=== PATIENT | female | born 1995 | race Caucasian/White ===

== ENCOUNTER 2023-01-23 20:55 | Outpatient (REF) | payer BC, SELFPAY | END 2023-01-23 20:56 | disposition home or self-care (01) | LOC: LAB 20:55 | PROVIDERS: Visit Provider Obstetrics & Gynecology | DX: Z34.93 Encounter for supervision of normal pregnancy, unspecified, third trimester (principal) | CPT/HCPCS: 87081 ==

== ENCOUNTER 2023-02-22 14:52 | Outpatient (OUT) | payer BC, SELFPAY ==
[2023-02-22 14:56] VITALS: BP 110/72; PULSE 70
[2023-02-22 14:57] VITALS: TEMP 36.2
--- NOTE | 2023-02-22 15:14 | US_ITS ---
[address] [address] Patient Name: YASSINE BRANDT MRN: [id number] date: 1995 Sex: F Assigned Patient Location: [facility] Current Patient Location: [facility] Accession/Order Number: [id number] Exam Date: 02/22/2023 15:15 Report Date: 02/22/2023 15:43 At the request of: SADI FUNK Procedure: US OB BPP w non-stress EXAMINATION: US OB BPP w non-stress HISTORY: O48.0 POST DELIVERY DATES COMPARISON: Ultrasound placenta 11/01/2022 TECHNIQUE: Ultrasound biophysical profile was performed in the radiology department. BREATHING MOVEMENTS: 2.0 GROSS BODY MOVEMENTS: 2.0 TONE: 2.0 QUALITATIVE AMNIOTIC FLUID VOLUME: 2.0 PRESENTATION: CEPHALIC HEART RATE: 138.5 bpm bpm. AMNIOTIC FLUID VOLUME: 13.6 cm GESTATIONAL AGE: 40 weeks 1 days CONCLUSION: Total biophysical profile score 8.0. Electronically authenticated by: HECTOR RUSSELL Date: 02/22/2023 15:43
== END 2023-02-22 15:35 | disposition home or self-care (01) ==
LOC: US 14:52 → FBC 14:53
PROVIDERS: Visit Provider Obstetrics & Gynecology
DX: O48.0 Post-term pregnancy (principal); Z3A.40 40 weeks gestation of pregnancy
CPT/HCPCS: 76818

== ENCOUNTER 2023-02-26 06:56 | Inpatient (IN) | payer BC, SELFPAY ==
[2023-02-26] VITALS (33 sets, daily range): BP systolic 99–141; BP diastolic 56–82; PULSE 58–89; RESP 16–18; TEMP 36.2–37
[2023-02-26] MEDS: 0.9 % SODIUM CHLORIDE 1,000 ML 125 ML IV ×2 (07:58→15:20)
[2023-02-26] MEDS: OXYTOCIN/0.9 % SODIUM CHLORIDE 10 UNITS/500 ML PLAST..BAG 6 UNIT IV (08:05)
[2023-02-26 08:12] LABS: Hematocrit 34.5 % (36.0-48.0); Hemoglobin 12.1 g/dL (12.0-16.0); Mean Corpuscular HGB Conc 35.1 g/dL (29.9-35.2); Mean Corpuscular Hemoglobin 30.8 pg (26.7-34.0); Mean Corpuscular Volume 87.8 fL (81.0-99.0); Platelet Count 185 10^3/uL (150-450); Red Blood Count 3.93 10^6/uL (4.20-5.40); Red Cell Distribution Width 13.3 % (11.0-15.0); White Blood Count 7.5 10^3/uL (4.0-11.0)
[2023-02-26 08:50] LABS: Amphetamine Screen Urine NEGATIVE (NEGATIVE); Barbiturates Screen Urine NEGATIVE (NEGATIVE); Benzodiazepines Screen Urine NEGATIVE (NEGATIVE); Buprenorphine Screen Urine NEGATIVE (NEGATIVE); Cannabinoid Screen Urine NEGATIVE (NEGATIVE); Cocaine Screen Urine NEGATIVE (NEGATIVE); Methadone Screen Urine NEGATIVE (NEGATIVE); Methamphetamines Screen Urine NEGATIVE (NEGATIVE); Opiate Screen Urine NEGATIVE (NEGATIVE); Oxycodone Screen Urine NEGATIVE (NEGATIVE); Phencyclidine Screen Urine NEGATIVE (NEGATIVE); Tricyclic Antidepressant Urine NEGATIVE (NEGATIVE)
--- NOTE | 2023-02-26 18:42 | PM.OBPRCVD ---
Procedure Intrapartal events: None Induction method: per pitocin protocol Delivery augmentation: rupture of membranes and pitocin Delivery monitor: external FHT and external uterine Route of delivery: Episiotomy Description: right mediolateral Laceration description: perineal - 2nd degree Delivery repair: Vicryl Estimated blood loss (mL): 275 Anesthesia type: nitrous Disposition: floor Delivery date: 02/26/23 Gender: female presentation: vertex Placental delivery description: Spontaneous cord description: 3 Vessels and Nuchal Cord
[2023-02-27] VITALS (9 sets, daily range): BP systolic 94–139; BP diastolic 52–84; PULSE 65–76; RESP 14–16; TEMP 36.7–36.9
[2023-02-27 05:48] LABS: Basophils Percent Auto 0.2 % (0.2-2.0); Eosinophils Percent Auto 0.1 % (0.9-7.0); Hematocrit 30.5 % (36.0-48.0); Hemoglobin 10.4 g/dL (12.0-16.0); Immature Granulocytes Abs Auto 0.18 10^3/uL (0.00-0.03); Immature Granulocytes Pct Auto 1.1 % (0.0-0.5); Lymphocytes Absolute Auto 1.5 10^3/uL (1.2-3.8); Mean Corpuscular HGB Conc 34.1 g/dL (29.9-35.2); Mean Corpuscular Hemoglobin 30.6 pg (26.7-34.0); Mean Corpuscular Volume 89.7 fL (81.0-99.0); Mean Platelet Volume 11.1 fL (9.5-13.5); Monocytes Absolute Auto 1.1 10^3/uL (0.3-0.8); Monocytes Percent Auto 6.9 % (1.7-12.0); Neutrophils Absolute Auto 13.5 10^3/uL (1.4-6.5); Neutrophils Percent Auto 82.7 % (43.0-75.0); Platelet Count 184 10^3/uL (150-450); Red Cell Distribution Width 13.4 % (11.0-15.0); White Blood Count 16.4 10^3/uL (4.0-11.0)
--- NOTE | 2023-02-27 07:37 | PM.OBPN ---
OB - PN: Subj Subjective Patient comments: no complaints [place] status: doing well Exam Constitutional Vital Signs, click to edit/add: Last Vital Signs Temp 98.4 F 02/27/23 03:47 Pulse 65 02/27/23 03:47 Resp 16 02/27/23 03:47 BP 94/52 02/27/23 03:47 O2 Del Method Room Air 02/27/23 03:47 Documenting provider has reviewed patient's vital signs: yes Common normals: no apparent distress Respiratory Common normals: clear to auscultation bilaterally Cardio Common normals: regular rate and regular rhythm GI Common normals: Normal to inspection, nondistended, normoactive bowel sounds present Extremity Common normals: no clubbing, cyanosis or edema and no calf tenderness Results Labs Labs: Short CBC 02/26/23 02/27/23 Range/Units 07:50 05:34 WBC 7.5 16.4 H (4.0-11.0) 10^3/uL Hgb 12.1 10.4 L (12.0-16.0) g/dL Hct 34.5 L 30.5 L (36.0-48.0) % Plt Count 185 184 (150-450) 10^3/uL OB - PN: A/P Plan - Vaginal Delivery day: 1 Plan: routine care Time Spent with Patient Time: Total time spent is greater than 50% in coordination of care (as documented) at patient's floor/unit and/or counseling patient: Total time spent with greater than 50% in coordination of care (as documented) at patient's floor/unit and/or counseling patient: less than 15 minutes
[2023-02-27] MEDS: DOCUSATE SODIUM 100 MG CAPSULE PO ×2 (09:00→22:38)
--- NOTE | 2023-02-27 19:11 | W.PC.ACHO ---
Registration Status: ADM IN Primary Language: Senegalese Preferred Language: Senegalese Active Medications Generic Name Dose Route Start Last Admin Trade Name Freq PRN Reason Stop Dose Admin Acetaminophen 650 mg 02/26/23 19:00 Acetaminophen 325 Mg Tablet PO Q6H PRN Mild Pain Al Hydroxide/Mg Hydroxide 2,400 mg 02/26/23 18:44 Magnesium Hydroxide 2,400 Mg/10 Ml Oral.Susp PO Q6H PRN Dyspepsia Docusate Sodium 100 mg 02/27/23 09:00 02/27/23 09:00 Docusate Sodium 100 Mg Capsule PO 100 mg BID RYDER Administration Sodium Chloride 1,000 mls @ 125 mls/hr 02/26/23 07:00 02/26/23 15:20 Sodium Chloride 0.9% 1,000 Ml IV 125 mls/hr .Q8H RYDER Administration Ibuprofen 600 mg 02/26/23 18:44 Ibuprofen 600 Mg Tablet PO Q6H PRN Moderate Pain Ondansetron HCl 4 mg 02/26/23 06:59 Ondansetron Pf 4 Mg/2 Ml Vial IV Q6H PRN Nausea And Vomiting Ondansetron HCl 4 mg 02/26/23 06:59 Ondansetron 4 Mg Rapdis Tablet SL Q6H PRN Nausea And Vomiting Senna 17.2 mg 02/26/23 20:00 Sennosides 8.6 Mg Tablet PO QHS PRN Constipation Simethicone 80 mg 02/26/23 18:44 Simethicone 80 Mg Tab.Chew PO QID PRN Abdominal Distention Temazepam 15 mg 02/26/23 22:00 Temazepam 15 Mg Capsule PO QHS PRN Sleep Witch Cristin/Glycerin 1 each 02/26/23 18:44 Glycerin/Witch Cristin 1 Each Jar TOPICAL ONCE PRN Pain IV Insertion/Site Date of IV Line Insertion [20g 02/26/23 right Forearm] IV Insertion Time [20g right 18:40 Forearm] Respiratory Oxygen Delivery Method Room Air Oxygen Delivery Method Room Air Oxygen Delivery Method Room Air Oxygen Delivery Method Room Air Oxygen Delivery Method Room Air Oxygen Delivery Method Room Air Oxygen Delivery Method Room Air Oxygen Delivery Method Room Air Oxygen Delivery Method Room Air Oxygen Delivery Method Room Air Oxygen Delivery Method Room Air Oxygen Delivery Method Room Air Oxygen Delivery Method Room Air Oxygen Delivery Method Room Air Oxygen Delivery Method Room Air Bowels Bowel Pattern No Bowel Movement Bowel Pattern No Bowel Movement Bowel Pattern No Bowel Movement Bowel Pattern No Bowel Movement Bowel Pattern No Bowel Movement Bowel Pattern No Bowel Movement Bowel Pattern No Bowel Movement Bowel Pattern No Bowel Movement Bowel Pattern No Bowel Movement Bowel Pattern No Bowel Movement Bowel Pattern No Bowel Movement
--- NOTE | 2023-02-28 08:40 | P.OBPN_ITS ---
OB - PN: Subj Subjective Patient comments: no complaints [place] status: doing well Exam Constitutional Vital Signs, click to edit/add: Last Vital Signs Temp 98.0 F 02/27/23 22:30 Pulse 69 02/27/23 22:34 Resp 16 02/27/23 22:30 BP 103/56 02/27/23 22:34 O2 Del Method Room Air 02/27/23 22:30 Documenting provider has reviewed patient's vital signs: yes Common normals: no apparent distress Respiratory Common normals: normal respiratory effort and clear to auscultation bilaterally Cardio Common normals: regular rate and regular rhythm GI Common normals: Normal to inspection, nondistended, normoactive bowel sounds present Extremity Common normals: no clubbing, cyanosis or edema and no calf tenderness OB - PN: A/P Plan - Vaginal Delivery day: 2 Plan: routine care, discharge home and follow up 6 weeks Time Spent with Patient Time: Total time spent is greater than 50% in coordination of care (as documented) at patient's floor/unit and/or counseling patient: Total time spent with greater than 50% in coordination of care (as documented) at patient's floor/unit and/or counseling patient: less than 15 minutes
[2023-02-28 09:37] VITALS: BP 114/78; PULSE 82
[2023-02-28] MEDS: DOCUSATE SODIUM 100 MG CAPSULE PO (10:15)
== END 2023-02-28 14:30 | disposition home or self-care (01) | DRG 807 ==
PROVIDERS: Admitting Provider Obstetrics & Gynecology; Visit Provider Obstetrics & Gynecology
DX: O48.0 Post-term pregnancy (principal); Z37.0 Single live birth; Z3A.40 40 weeks gestation of pregnancy; O69.81X0 Labor and delivery complicated by cord around neck, without compression, not applicable or unspecified; O70.1 Second degree perineal laceration during delivery
CPT/HCPCS: 36415; 59050; 59410; 80307; 85025; 85027; 86850; 86900; 86901; 96374; 96376

== ENCOUNTER 2023-03-05 08:36 | Outpatient (OUT) | payer BC, SELFPAY ==
[2023-03-05 15:47] VITALS: BP 133/84; PULSE 75; RESP 18; TEMP 36.9; O2SAT 99
--- NOTE | 2023-03-05 15:54 | PC.NURSE ---
States is doing well, right nipple damage from poor latch evident. Worked on latching and positioning using laid back and cross cradle hold. once Reema able to relax, deeper latch achieved and less pain. Reviewed nipple care , given shells an dlanolin. Demo's appropriate care of self. no further questions at this time. Will return 03/12/2023 for continued support.
== END 2023-03-05 15:35 | disposition home or self-care (01) ==
LOC: FBCO 08:37
PROVIDERS: Visit Provider Obstetrics & Gynecology
DX: Z39.2 Encounter for routine postpartum follow-up (principal)

== ENCOUNTER 2023-03-12 08:01 | Outpatient (RCR) | payer BC, SELFPAY ==
--- NOTE | 2023-03-12 14:28 | PC.NURSE ---
Kannan arrive for support. Mom states we are doing so great! Relate that latching is better, still having trouble with tight clamp of mouth when latching . to breast in football hold, noted to have tight body posture, hypertonia , resistant to flex at hips and resistant to head lag for relaxed latch. Infant noted to have an exaggerated startle reflex as well. Mom interested in chiropractic or Cranial sacral therapy as a way to help reduce tension in infant. Parent will contact [facility] of her choice and Peds for varification.
== END 2023-03-12 13:25 | disposition home or self-care (01) ==
LOC: FBCO 08:01
PROVIDERS: Visit Provider Obstetrics & Gynecology
DX: Z39.1 Encounter for care and examination of lactating mother (principal)
CPT/HCPCS: G0463

== ENCOUNTER 2023-10-15 20:06 | Outpatient (REF) | payer BC, SELFPAY ==
[2023-10-20 08:07] LABS: Age Gdln ACOG Testing Note (.); IGP, rfx Aptima HPV ASCU Note (.)
== END 2023-10-15 20:07 | disposition home or self-care (01) ==
LOC: LAB 20:06
PROVIDERS: Visit Provider Obstetrics & Gynecology
DX: Z01.419 Encounter for gynecological examination (general) (routine) without abnormal findings (principal)
CPT/HCPCS: G0145

== ENCOUNTER 2024-04-25 10:47 | Emergency (ER) | payer BC, SELFPAY ==
[2024-04-25 10:58] VITALS: BP 123/83; PULSE 77; TEMP 36.8; O2SAT 98
[2024-04-25 11:18] LABS: Internal Control Within Normal Limits; Strep A Antigen Screen Negative
--- NOTE | 2024-04-25 13:54 | ED_ITS ---
HPI HPI - General Adult General Stated complaint: SOB, SORE THROAT Time Seen by Provider: 04/25/24 11:05 Source: patient Mode of arrival: walk-in Limitations: no limitations History of Present Illness HPI narrative: The patient is coming to the ER with c/o mild sore throat associated with what she said that it was a uvula swelling Patient mentioned that this started just last night she have no other symptoms of runny nose coughing or any other concerns The patient also mentioned that she have no difficulty swallowing or difficulty breathing Related Data Home Medications ?Medication ?Instructions ?Recorded ?Confirmed [id number] .ROUTE 02/26/23 Previous Rx's ?Medication ?Instructions ?Recorded ibuprofen 600 mg tablet 600 mg PO TID PRN pain #20 tabs 04/25/24 Allergies Allergy/AdvReac Type Severity Reaction Status Date / Time amoxicillin AdvReac Intermediate Nausea Verified 04/25/24 10:58 Opioid HPI Opioid Management Most Recent Opioid Data: Last Pain Scale 5 02/26/23 14:56 02/26/23 Ur Phencyclidine Scrn Negative (NEGATIVE) 02/26/23 07:30 02/12 12/04 Review of Systems ROS Status of ROS 10 or more systems reviewed and unremark able except as noted in history and below PFSH PFSH Medical History (Updated 04/25/24 @ 11:41 by Anita Huynh MD) 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 Smoking status: Never smoker Second hand tobacco smoke exposure: No Non-prescribed substance use: denies use Known occupational exposures/hazards: No Highest level of school completed/degree received: Master's degree Little interest or pleasure in doing things: not at all Feeling down, depressed, or hopeless: not at all Feel stressed/tense/nervous/anxious/difficulty sleeping: not at all Due to disability, difficulty making decisions: No Exam Narrative Exam Narrative: Nurses notes and vital signs reviewed and patient is not hypoxic. General: Well-appearing and in no apparent distress. Skin: Warm, dry, no pallor noted. No rash. Head: Normocephalic, atraumatic. Neck: Supple, non-tender. Eye: Pupils are equal, round and EOMI. No scleral icterus. Ears, Nose, Mouth, and Throat: TM are clear, no nasal mucosal hypertrophy. Oral mucosa is moist, very mild erythema and no enlargement of the uvula that is significant to exam, uvula is mid-line Cardiovascular: Regular Rate and Rhythm without murmur, gallop or rub. Respiratory: No accessory muscle use or respiratory distress. Lungs are clear to auscultation, no wheezing, rales or rhonchi Chest Wall: no tenderness Back: No midline thoracic or lumbar vertebral tenderness. No CVA tenderness Musculoskeletal: normal ROM, no calf or popliteal tenderness, no lower extremity edema/swelling GI: Abdomen is soft, non-distended. Normal bowel sounds. No masses appreciated. No tenderness to palpation. No rebound, guarding, or rigidity noted. Neurological: A&O x4. No cranial nerve dysfunction observed. No truncal at axia. Moves all extremities. Sensation intact. Psychiatric: Cooperative and interactive. Normal mood and affect. Constitutional Vital Signs, click to edit/add: Last Vital Signs Temp 98.3 F 04/25/24 10:58 Pulse 77 04/25/24 10:58 Resp 18 04/25/24 10:58 BP 123/83 04/25/24 10:58 Pulse Ox 98 04/25/24 10:58 Course Vital Signs Vital signs: Vital Signs Temperature 98.3 F 04/25/24 10:58 Pulse Rate 77 04/25/24 10:58 Respiratory Rate 18 04/25/24 10:58 Blood Pressure 123/83 04/25/24 10:58 Pulse Oximetry 98 04/25/24 10:58 Temperature 98.3 F 04/25/24 10:58 Pulse Rate 77 04/25/24 10:58 Respiratory Rate 18 04/25/24 10:58 Blood Pressure 123/83 04/25/24 10:58 Pulse Oximetry 98 04/25/24 10:58 Medical Decision Making [facility] Narrative Medical decision making narrative: The patient does not have any significant finding on examination except for mild redness and her strep test was negative Right now the patient will just continue supportive care with ibuprofen The patient is to follow up with primary care physician in next 2-3 days or to return to the emergency department should any of the signs or symptoms worsen or new symptoms develop. The patient agrees with the following Diagnosis and Treatment plan and the patient will be discharged home. Lab Data Labs: Lab Results 04/25/24 Range/Units 11:06 Streptococcus Screen Negative Discharge Plan Discharge Clinical Impression: Pharyngitis Patient Disposition: Home, Self-Care Time of Disposition Decision: 11:41 Condition: Good Prescriptions / Home Meds: New ibuprofen 600 mg tablet 600 mg PO TID PRN (Reason: pain) Qty: 20 0RF No Action [id number] [ 19] .ROUTE Print Language: Japanese Instructions: Pharyngitis (ED) Referrals: Physician,Non-Staff, MD [Primary Care Provider] - 1 week Discharge Date/Time: 04/25/24 12:11
== END 2024-04-25 12:11 | disposition home or self-care (01) ==
PROVIDERS: Emergency Provider Emergency Medicine
DX: J02.9 Acute pharyngitis, unspecified (principal)
CPT/HCPCS: 87070; 87880; 99283

== ENCOUNTER 2025-02-24 07:26 | Outpatient (OUT) | payer BC, SELFPAY ==
--- OUTSIDE RECORDS SUMMARY | 2025-02-24 07:30 | XMS_ITS | Encounter Summary ---
Author Organization [facility] Address [address] [place] [address] Care Team Providers Care Franchise Sales Manager Name Role Phone Unavailable Primary Care Provider Unavailabl e Encounter Details Date Type Department Care Team (Late st Contact Info) Description 12/29/2022 Abstract [facility] [address] [place] [id number] Anastacia Frances PA [address] [place], [facility] Social History Tobacco Use Types Packs/Day Years Used Date Smoking Tobacco: Never Tobacco Cessation:Counseling Given: Not Answered Alcohol Use Standard Drinks/Week Comments Never 0 (1 standard drink = 0.6 oz pur e alcohol) Comments Yes Sex and Gender Information Value Date Recorded Sex Assigned at Not on file Legal Sex Female 11:47 PM EDT Gender Identity Not on file Sexual Orientation Not on file COVID-19 Exposure Response Date Recorded In the last 10 days, have yo u been in contact with someone who was confirmed or suspected to have Coronavirus/COVID-19? No / Unsure 12/21/2022 6:58 AM EDT documented as of this encounter Plan of Treatment Not on file documented as of this encounter Visit Diagnoses Not on filedocumented in this encounter
--- OUTSIDE RECORDS SUMMARY | 2025-02-24 07:30 | XMS_ITS | CCD ---
Author Organization [facility] Care Team Providers Care Police Worker Name Role Phone ZOFIA, GINGER M Unavailable Unavailable ZOFIA, GINGER M Unavailable Unavailable ZOFIA, GINGER M Unavailable Unavailable ZOFIA, GINGER M Unavailable Unavailable CHRISTAL, FARRAH Referring Unavailable THUMMALAPALLY, MISTYHEETH Attending Unavaila ble JANNY, WHIT S Consulting Unavailable THUMMALAPALLY, RUSHEETH Admitting Unavaila ble PARINJA, JESSA Consulting Unavailable MARIA TERESA ., GENE Admitting Unavailable MARIA TERESA ., GENE Attending Unavailable MARIA TERESA ., GENE Consulting Unavailable ADRIEL ., DR WOOD Consulting Unavailable ADRIEL ., DR WOOD Admitting Unavailable ADRIEL ., DR WOOD Attending Unavailable DESTINEY, TREVOR Admitting Unavailable DESTINEY, TREVOR Attending Unavailable DESTINEY, TREVOR Consulting Unavailable ADRIEL ., DR WOOD Consulting Unavailable ADRIEL ., DR WOOD Admitting Unavailable ADRIEL ., DR WOOD Attending Unavailable ZIEBER, DR HECTOR Mckinnon Consulting Unavailable ADRIEL ., DR WOOD Consulting Unavailable ADRIEL ., DR WOOD Admitting Unavailable ADRIEL ., DR WOOD Attending Unavailable ZIEBER, DR HECTOR Mckinnon Consulting Unavailable ADRIEL ., DR WOOD Consulting Unavailable ADRIEL ., DR WOOD Admitting Unavailable ADRIEL ., DR WOOD Attending Unavailable ADRIEL ., DR WOOD Admitting Unavailable ADRIEL ., DR WOOD Attending Unavailable ADRIEL ., DR WOOD Consulting Unavailable ZIEBER, DR HECTOR Mckinnon Consulting Unavailable ADRIEL ., DR WOOD Admitting Unavailable ADRIEL ., DR WOOD Attending Unavailable ADRIEL ., DR WOOD Consulting Unavailable ADRIEL ., DR WOOD Admitting Unavailable ADRIEL ., DR WOOD Attending Unavailable ADRIEL ., DR WOOD Consulting Unavailable Shaggy Maravilla Attending Unavailab Shaggy Peralta Admitting Unavailab le NON STAFF Primary Care Unavailable NON STAFF Primary Care Provider Linda Sullivan APRN Attending Provider [phone] Medications Completed/Discontinued Medications Medication Drug Class(es) Dates Sig (Normalized) Sig (Original) polymyxin b 07432 unt/ml / trimethoprim 1 mg/ml ophthalmic solution (2 sources) Dihydrofolate Reductase Inhibitor Antibacterial, Polymyxin-class Antibacterial Start: 08-05-2024 End: 02-12-2025 Polymyxin B Sulf-Trimethoprim 10,000 unit- 1 mg/mL drops Discontinued 1 DROPS OPHTHALMIC Every three hours 10 7 August 05, 2024 1:00am February 12, 2025 9:36am do not exceed 6 doses in a 24 hr period Problems Active Problems Problem Classification Problem Date Documented Date Episodic/Chronic Hemorrhage during ; abruptio placenta; placenta previa (5 sources) Low lying placenta NOS or without hemorrhage, unspecified trimester; Translations: [Low lying placenta NOS or without hemorrhage, second trimester] Onset: 10-07-2022 Episodic Immunizations and screening for infectious disease (5 sources) Encounter for screening for infections with a predominantly sexual mode of transmission; Translations: [ENCNTR SCREEN FOR INFECTIONS W SEXL MODE OF TRANSMISS] Onset: 04-19-2017 Episodic Inflammation; infection of eye (except that caused by tuberculosis or sexually transmitteddisease) (3 sources) Conjunctivitis of right eye; Translations: [Unspecified conjunctivitis] 08-05-2024 Episodic Menstrual disorders (4 sources) Irregular menstruation, unspecified; Translations: [IRREGULAR MENSTRUATION UNSPECIFIED] Onset: 08-10-2022 Chronic Other female genital disorders (1 source) Other specified noninflammatory disorders of vagina; Translations: [OTH SPEC NONINFLAMMATORY D/O VAGINA] Onset: 10-06-2022 Episodic Other and delivery including normal (11 sources) Encounter for supervision of normal , unspecified, second trimester; Translations: [Encounter for supervision of normal first , first trimester] Onset: 07-12-2022 Episodic Other screening for suspected conditions (not mental disorders or infectious disease) (12 sources) Encounter for other specified screening; Translations: [Encounter for screening for malignant neoplasm of cervix] Onset: 09-11-2022 Episodic Residual codes; unclassified (1 source) 24 weeks gestation of ; Translations: [24 WEEKS GESTATION OF ] Onset: 11-11-2022 Episodic Residual codes; unclassified (1 source) 20 weeks gestation of ; Translations: [20 WEEKS GESTATION OF ] Onset: 10-07-2022 Episodic Past or Other Problems Problem Classification Problem Date Documented Da te Episodic/Chronic Administrative/social admission (4 sources) Encounter for pre-employment examination; Translations: [ENCOUNTER FOR PRE-EMPLOYMENT EXAM] Onset: 04-05-2022 Episodic Residual codes; unclassified (1 source) Less than 8 weeks gestation of ; Translations: [< 8 WEEKS GESTATION ] Onset: 07-12-2022 Episodic Results Test Name Value Interpretation Reference Range Facility CBC AUTO DIFFon 11-08-2022 BASO # 0.0 103/ul Normal 0.0-0.1 [facility] Comment on above: Performed By: #### V ARCEL #### [facility] [address] [address] [address] Melissa Jasmine Basophils/100 WBC (Bld) 0.2 % Normal 0.2-2.0 [facility] Comment on above: Performed By: #### V ARCEL #### [facility] [address] [address] [address] Melissa Jasmine EO # 0.1 103/ul Normal 0.0-0.7 [facility] Comment on above: Performed By: #### V ARCEL #### [facility] [address] [address] [address] Melissa Jasmine Eosinophils/100 WBC (Bld) 0.6 % Critically low 0.9-7.0 [facility] Comment on above: Performed By: #### V ARCEL #### [facility] [address] [address] [address] Melissa Jasmine Erythrocyte distribution width (RBC) [Ratio] 13.4 % Normal 11.0-15.0 [facility] Comment on above: Performed By: #### V ARCEL #### [facility] [address] [place] [address] Dr. Melissa Jasmine Hematocrit (Bld) [Volume fraction] 33.8 % Critically low 36.0-48.0 [facility] Comment on above: Performed By: #### V ARCEL #### [facility] [address] [place] [address] Dr. Melissa Jasmine Hemoglobin (Bld) [Mass/Vol] 11.1 g/dL Critically low 12.0-16.0 [facility] Comment on above: Performed By: #### V ARCEL #### [facility] [address] [place] [address] Dr. Melissa Jasmine IG # 0.16 10e3/ul Critically high 0.00-0.03 [facility] Comment on above: Performed By: #### V ARCEL #### [facility] [address] [place] [address] Dr. Melissa Jasmine IG % 1.7 % Critically high 0.0-0.5 [facility] Comment on above: Performed By: #### V ARCEL #### [facility] [address] [place] [address] Dr. Melissa Jasmine LYMPH # 1.5 103/ul Normal 1.2-3.8 [facility] Comment on above: Performed By: #### V ARCEL #### [facility] [address] [place] [address] Dr. Melissa Jasmine Lymphocytes/100 WBC (Bld) 16.1 % Critically low 20.5-60.0 [facility] Comment on above: Performed By: #### V CHAVEZEL #### [facility] [address] [place] [address] Dr. Melissa Jasmine MANUAL DIFF REQ NO Normal [facility] Comment on above: Performed By: #### V ARCEL #### [facility] [address] [place] [address] Dr. Melissa Jasmine MCH (RBC) [Entitic mass] 29.9 pg Normal 26.7-34.0 [facility] Comment on above: Performed By: #### V ARCEL #### [facility] [address] [place] [address] Dr. Melissa Jasmine MCHC (RBC) [Mass/Vol] 32.8 g/dL Normal 29.9-35.2 [facility] Comment on above: Performed By: #### V CHAVEZEL #### [facility] [address] [place] [address] Dr. Melissa Jasmine MCV (RBC) [Entitic vol] 91.1 fL Normal 81.0-99.0 [facility] Comment on above: Performed By: #### V CHAVEZEL #### [facility] [address] [place] [address] Dr. Melissa Jasmine MONO # 0.5 103/ul Normal 0.3-0.8 [facility] Comment on above: Performed By: #### V CHAVEZEL #### [facility] [address] [place] [address] Dr. Melissa Jasmine Monocytes/100 WBC (Bld) 5.5 % Normal 1.7-12.0 [facility] Comment on above: Performed By: #### V CHAVEZEL #### [facility] [address] [place] [address] Dr. Melissa Jasmine NEUT # 7.1 103/ul Critically high 1.4-6.5 [facility] Comment on above: Performed By: #### V CHAVEZEL #### [facility] [address] [place] [address] Dr. Melissa Jasmine Neutrophils/100 WBC (Bld) 75.9 % Critically high 43.0-75.0 [facility] Comment on above: Performed By: #### Avinash BYRNEEL #### [facility] [address] [place] [address] Dr. Melissa Jasmine Platelet mean volume (Bld) [Entitic vol] 10.1 fL Normal 9.5-13.5 [facility] Comment on above: Performed By: #### V CHAVEZEL #### [facility] [address] [place] [address] Dr. Melissa Jasmine PLT 252 103/ul Normal 150-450 [facility] Comment on above: Performed By: #### V CHAVEZEL #### [facility] [address] [place] [address] Dr. Melissa Jasmine RBC 3.71 106/ul Critically low 4.20-5.40 [facility] Comment on above: Performed By: #### V JUDITH #### [facility] [address] [address] [address] Melissa Jasmine WBC 9.4 103/ul Normal 4.0-11.0 [facility] Comment on above: Performed By: #### V JUDITH #### [facility] [address] [address] [address] Melissa Jasmine GLUCOSE - 1HRon 11-08-2022 Glucose [Mass/Vol] 113 mg/dL Critically high 74-106 [facility] Comment on above: Performed By: #### V JUDITH #### [facility] [address] [place] [address] Dr. Melissa Jasmine US PREG PLACENTAon US PREG PLACENTA EXAMINATION: US PREG PLACENTA HISTORY: Low lying placenta COMPARISON: Ultrasound anatomy 10/04/2022 FINDINGS: PLACENTA: Anterior with lower margin 4.4 cm from os. CERVIX LENGTH: 3.9 cm, closed. HEART RATE: 153 bpm OTHER: None. GA: 24 weeks 0 days TAMMY: 02/21/2023 IMPRESSION: 1. Single live intrauterine . 2. Anterior placenta which is no longer low-lying. Electronically authenticated by: HECTOR RUSSELL Date: 2022-11-01 15:36 [facility] PAP ACOG PANEL 2: 21 to 29on 10-09-2022 . . Normal [facility] Comment on above: Performed By: #### [id number] #### [facility] [address] [place] [address] Dr. Melissa Jasmine Age Gdln ACOG Testing 21-29 Normal [facility] Comment on above: Performed By: #### 4 [id number] #### [facility] [address] [address] [address] Melissa Jasmine DIAGNOSIS: Comment [facility] Comment on above: Result Comment: NEGA TIVE FOR INTRAEPITHELIAL LESION OR MALIGNANCY. Performed By: #### [id number] #### [facility] [address] [place] [address] Dr. Melissa Jasmine Methodology: Comment [facility] Comment on above: Result Comment: This liquid based ThinPrep(R) pap test was screened with the use of an image guided system. Performed By: #### 4 [id number] #### [facility] [address] [place] [address] Dr. Melissa Jasmine Note: Comment Normal [facility] Comment on above: Result Comment: The Pap smear is a screening test designed to aid in the detection of premalignant and malignant conditions of the uterine cervix. It is not a diagnostic procedure and should not be used as the sole means of detecting cervical cancer. Both false-positive and false-negative reports do occur. . Performed By: #### 4 [id number] #### [facility] [address] [place] [address] Dr. Melissa Jasmine Performed by: Comment Normal [facility] Comment on above: Result Comment: Zuleyma Roman, Supervisory Systems Integration Manager (ASCP) Performed By: #### 4 [id number] #### [facility] [address] [place] [address] Dr. Melissa Jasmine Reflex Criteria: Comment Normal [facility] Comment on above: Result Comment: The HPV DNA reflex criteria were not met with this specimen result therefore, no HPV testing was performed. . Performed By: #### 4 [id number] #### [facility] [address] [place] [address] Dr. Melissa Jasmine Specimen adequacy: Comment Normal [facility] Comment on above: Result Comment: Sati sfactory for evaluation. No endocervical component is identified. Performed By: #### 4 [id number] #### [facility] [address] [place] [address] Dr. Melissa Jasmine CHLAMYDIA/GONOCOCCUS EMMANUEL (SW AB/URINE/PAPon 10-04-2022 Chlamydia trachomatis, EMMANUEL Negative Normal Negative [facility] Comment on above: Performed By: #### C T/NGNA #### [facility] [address] [place] [address] Dr. Melissa Jasmine Neisseria gonorrhoeae, EMMANUEL Negative Normal Negative [facility] Comment on above: Performed By: #### C T/NGNA #### [facility] [address] [address] [address] Melissa Jasmine US PREG ANATOMY SINGLEon US PREG ANATOMY SINGLE EXAMINATION: US PREG ANATOMY SINGLE HISTORY: anatomy study COMPARISON: No relevant comparison available. TECHNIQUE: Transabdominal sonographic examination was performed for obstetrical and evaluation. FINDINGS: Number: 1 Heart Rate: 139.0 bpm H.B. /min Amniotic Fluid Volume: Subjectively normal Placental Location: ANTERIOR with lower margin 0.7 cm from os. Cervix Length: 5.3 cm, closed. ANATOMY: Normal Structures -cerebellum, choroid plexus, cisterna magna, lateral cerebral ventricles, orbits, midline falx, hard palate, four-chamber heart, RVOT, LVOT, stomach, kidneys, bladder, umbilical cord insertion into abdomen, three-vessel cord, cervical spine, thoracic spine, lumbar spine, sacral spine, right upper extremity, left upper extremity, right lower extremity, left lower extremity. SUBOPTIMALLY SEEN: None ABNORMALITIES: None BIOMETRY: BPD: 4.3 cm 18 weeks 6 days HC: 16.5 cm 19 weeks 2 days AC: 15.8 cm 20 weeks 6 days FL: 3.2 cm 19 weeks 6 days EFW:341.4 grams; 60% FL/AC: 20.0 FL/BPD: 74.0 HC/AC: 1.1 GESTATIONAL AGE: Age by EDC: 20 weeks 0 days TAMMY by EDC: 02/21/2023 Age by current US: 19 weeks 5 days TAMMY by current US: 02/23/2023 IMPRESSION: 1. Single live intrauterine with growth detailed above. 2. Low-lying anterior placenta. Electronically authenticated by: HECTOR RUSSELL Date: 2022-10-04 15:19 Normal [facility] VAGINITIS/VAGINOSIS DNA PROB Juan 10-03-2022 Haily species Negative Normal Negative [facility] Comment on above: Performed By: #### V AGINT #### [facility] [address] [address] [address] Melissa Jasmine Gardnerella vaginalis Negative Normal Negative [facility] Comment on above: Performed By: #### V AGINT #### [facility] [address] [address] [address] Melissa Jasmine Trichomonas vaginalis Negative Normal Negative [facility] Comment on above: Performed By: #### V AGINT #### [facility] [address] [address] [address] Melissa Jasmine AFP MATERNAL FOR SPINA BIFID Aon 09-13-2022 AFP MoM 1.48 Normal [facility] Comment on above: Performed By: #### A FPMAT #### [facility] [address] [address] [address] Melissa Jasmine AFP Value 57.9 ng/mL Normal [facility] Comment on above: Performed By: #### A FPMAT #### [facility] [address] [address] [address] Melissa Jasmine AFP, Serum for Spina Bifida Report Normal [facility] Comment on above: Performed By: #### A FPMAT #### [facility] [address] [address] [address] Melissa Jasmine Comment Comment Normal [facility] Comment on above: Result Comment: Jennifer Dugan, Ph.D., [facility] Director . References: Available Upon Request. . Multiples Of Median Cutoffs For AFP Elevations Leon 2.5 Black 2.8 IDD 2.0 Twins 4.5 Abbreviation Definitions IDD - Insulin Dep Diabetes OSBR - Open Spina Bifida Risk . For further inquiries contact [facility] at [phone]. . This test was developed and its performance characteristics determined by [employer]. It has not been cleared or approved by the Food and Drug Administration. Performed By: #### A FPMAT #### [facility] [address] [address] [address] Melissa Torres Age Collection Date 16.7 weeks Normal [facility] Comment on above: Performed By: #### A FPMAT #### [facility] [id number] Melissa Jasmine Gestat, Age Based on TAMMY Normal [facility] Comment on above: Result Comment: 02/12 Recalculations are not recommended when gestational dating by LMP and ultrasound are within 10 days. Performed By: #### A FPMAT #### [facility] [address] [place] [address] Dr. Melissa Jasmine Insulin Dep Diabetes No Normal [facility] Comment on above: Performed By: #### A FPMAT #### [facility] [address] [place] [address] Dr. Melissa Jasmine Interpretation Comment Normal [facility] Comment on above: Result Comment: Inte rpretation: Screen Negative . This result is screen negative for OSB. The AFP MoM calculated is based on the gestational age provided. MS-AFP can identify up to 80% of open neural tube defects. Closed neural tube defects and some open defects may not be detected by this test. This test does not screen for Down Syndrome or Trisomy 18. If screening for Down Syndrome or Trisomy 18 is desired, contact [facility] to discuss available options. The [employer] recommends amniocentesis be offered to women age 35 and older. Performed By: #### A FPMAT #### [facility] [address] [place] [address] Dr. Melissa Jasmine [age] Normal [facility] Comment on above: Performed By: #### A FPMAT #### [facility] [address] [place] [address] Dr. Melissa Jasmine Multiple Gestation No Normal [facility] Comment on above: Performed By: #### A FPMAT #### [facility] [address] [place] [address] Dr. Melissa Jasmine OSBR Risk 1 [place] [address] [facility] Comment on above: Performed By: #### A FPMAT #### [facility] [address] [place] [address] Dr. Melissa Jasmine PDF . Normal [facility] Comment on above: Performed By: #### A FPMAT #### [facility] [address] [place] [address] Dr. Melissa Jasmine Race [facility] Comment on above: Performed By: #### A FPMAT #### [facility] [address] [place] [address] Dr. Melissa Jasmine Test Results: Negative Normal [facility] Comment on above: Performed By: #### A FPMAT #### [facility] [address] [place] [address] Dr. Melissa Jasmine GLUCOSE - 1HRon 09-11-2022 Glucose [Mass/Vol] 96 mg/dL Normal 74-106 [facility] Comment on above: Performed By: #### H BSANS #### [facility] [address] [place] [address] Dr. Melissa Jasmine HEP B SURFACE ANTIGEN SCREEN on 08-11-2022 HBsAg Screen Negative Normal Negative [facility] Comment on above: Performed By: #### H BSANS #### [facility] [address] [place] [address] Dr. Melissa Jasmine HEPATITIS C VIRUS AB W/ REFL EX QUANTon 08-11-2022 HCV AB <0.1 Normal 0.0-0.9 [facility] Comment on above: Performed By: #### H BSANS #### [facility] [address] [place] [address] Dr. Melissa Jasmine Interpretation: Comment Normal [facility] Comment on above: Result Comment: Nega tive Not infected with HCV, unless recent infection is suspected or other evidence exists to indicate HCV infection. Performed By: #### H BSANS #### [facility] [address] [place] [address] Dr. Melissa Jasmine HIV 1 AND 2 WITH REFLEXon HIV Screen 4th Generation wRfx Non-Reactive Normal Non Reactive [facility] Comment on above: Result Comment: HIV Negative HIV-1/HIV-2 antibodies and HIV-1 p24 antigen were NOT detected. There is no laboratory evidence of HIV infection. Performed By: #### H IV12 #### [facility] [address] [place] [address] Dr. Melissa Jasmine RPR QUANTon 08-11-2022 Rapid Plasma Reagin, Quant Non-Reactive Normal NonRea<1:1 [facility] Comment on above: Result Comment: Plea se Note: This test does not meet current guidelines for screening and diagnosis of syphilis. This test is intended for following treatment response in patients being treated for syphilis infection. To screen for syphilis infection, a reflex cascade that includes both RPR and a treponema-specific assay should be utilized, such as Treponema pallidum (Syphilis) Screening [place] (719005) or Rapid Plasma Reagin (RPR) Test With Reflex to Quantitative RPR and Confirmatory Treponema pallidum Antibodies (119763). Performed By: #### H BSANS #### [facility] [address] [place] [address] Dr. Melissa Jasmine RUBELLA AB IGGon 08-11-2022 Rubella Antibodies, IgG 15.60 index Normal Immune >0.99 [facility] Comment on above: Result Comment: Non- immune <0.90 Equivocal 0.90 - 0.99 Immune >0.99 Performed By: #### H BSANS #### [facility] [address] [place] [address] Dr. Melissa Jasmine CBC AUTO DIFFon 08-10-2022 BASO # 0.0 103/ul Normal 0.0-0.1 [facility] Comment on above: Performed By: #### H BSANS #### [facility] [address] [place] [address] Dr. Melissa Jasmine Basophils/100 WBC (Bld) 0.5 % Normal 0.2-2.0 [facility] Comment on above: Performed By: #### H BSANS #### [facility] [address] [place] [address] Dr. Melissa Jasmine EO # 0.1 103/ul Normal 0.0-0.7 [facility] Comment on above: Performed By: #### H BSANS #### [facility] [address] [place] [address] Dr. Melissa Jasmine Eosinophils/100 WBC (Bld) 0.8 % Critically low 0.9-7.0 [facility] Comment on above: Performed By: #### H BSANS #### [facility] [address] [place] [address] Dr. Melissa Jasmine Erythrocyte distribution width (RBC) [Ratio] 12.4 % Normal 11.0-15.0 [facility] Comment on above: Performed By: #### H BSANS #### [facility] [address] [address] [address] Melissa Jasmine Hematocrit (Bld) [Volume fraction] 41.4 % Normal 36.0-48.0 [facility] Comment on above: Performed By: #### H BSANS #### [facility] [address] [place] [address] Dr. Melissa Jasmine Hemoglobin (Bld) [Mass/Vol] 13.2 g/dL Normal 12.0-16.0 [facility] Comment on above: Performed By: #### H BSANS #### [facility] [address] [place] [address] Dr. Melissa Jasmine IG # 0.03 10e3/ul Normal 0.00-0.03 [facility] Comment on above: Performed By: #### H BSANS #### [facility] [address] [place] [address] Dr. Melissa Jasmine IG % 0.5 % Normal 0.0-0.5 [facility] Comment on above: Performed By: #### H BSANS #### [facility] [address] [address] [address] Melissa Jasmine LYMPH # 1.3 103/ul Normal 1.2-3.8 [facility] Comment on above: Performed By: #### H BSANS #### [facility] [address] [place] [address] Dr. Melissa Jasmine Lymphocytes/100 WBC (Bld) 21.9 % Normal 20.5-60.0 [facility] Comment on above: Performed By: #### H BSANS #### [facility] [address] [place] [address] Dr. Melissa Jasmine MANUAL DIFF REQ NO Normal [facility] Comment on above: Performed By: #### H BSANS #### [facility] [address] [place] [address] Dr. Melissa Jasmine MCH (RBC) [Entitic mass] 30.1 pg Normal 26.7-34.0 [facility] Comment on above: Performed By: #### H BSANS #### [facility] [address] [address] [address] Melissa Jasmine MCHC (RBC) [Mass/Vol] 31.9 g/dL Normal 29.9-35.2 [facility] Comment on above: Performed By: #### H BSANS #### [facility] [address] [place] [address] Dr. Melissa Jasmine MCV (RBC) [Entitic vol] 94.5 fL Normal 81.0-99.0 [facility] Comment on above: Performed By: #### H BSANS #### [facility] [address] [place] [address] Dr. Melissa Jasmine MONO # 0.4 103/ul Normal 0.3-0.8 [facility] Comment on above: Performed By: #### H BSANS #### [facility] [address] [place] [address] Dr. Melissa Jasmine Monocytes/100 WBC (Bld) 6.7 % Normal 1.7-12.0 [facility] Comment on above: Performed By: #### H BSANS #### [facility] [address] [place] [address] Dr. Melissa Jasmine NEUT # 4.1 103/ul Normal 1.4-6.5 [facility] Comment on above: Performed By: #### H BSANS #### [facility] [address] [place] [address] Dr. Melissa Jasmine Neutrophils/100 WBC (Bld) 69.6 % Normal 43.0-75.0 [facility] Comment on above: Performed By: #### H BSANS #### [facility] [address] [place] [address] Dr. Melissa Jasmine Platelet mean volume (Bld) [Entitic vol] 10.4 fL Normal 9.5-13.5 [facility] Comment on above: Performed By: #### H BSANS #### [facility] [address] [place] [address] Dr. Melissa Jasmine PLT 257 103/ul Normal 150-450 [facility] Comment on above: Performed By: #### H BSANS #### [facility] [address] [address] [address] Melissa Jasmine RBC 4.38 106/ul Normal 4.20-5.40 [facility] Comment on above: Performed By: #### H BSANS #### [facility] [address] [address] [address] Melissa Jasmine WBC 5.9 103/ul Normal 4.0-11.0 [facility] Comment on above: Performed By: #### H BSANS #### [facility] [address] [address] [address] Melissa Jasmine GLYCOHEMOGLOBIN A1Con 2022 ADA RECOMMENDATION SEE BELOW Normal [facility] Comment on above: Result Comment: ADA RECOMMENDED LIMIT 4.0 - 6.0 ADA THERAPEUTIC TARGET < 7.0 ACTION SUGGESTED > 7.0 Performed By: #### A 1C #### [facility] [address] [place] [address] Dr. Melissa Jasmine Glucose [Mass/Vol] 100 mg/dL Normal [facility] Comment on above: Performed By: #### A 1C #### [facility] [address] [address] [address] Melissa Jasmine HbA1c (Bld) [Mass fraction] 5.1 % Normal 4.5-6.2 [facility] Comment on above: Performed By: #### A 1C #### [facility] [address] [place] [address] Dr. Melissa Jasmine ROXY BOX TEST PT SEND OUTo n 08-10-2022 SENT TO REF LAB 08/10/2022 Normal [facility] Comment on above: Performed By: #### H BSANS #### [facility] [address] [place] [address] Dr. Melissa Jasmine TYPE AND SCREENon 08-10-2022 TYPE AND SCREEN Negative Normal [facility] Comment on above: Performed By: #### H BSANS #### [facility] [address] [place] [address] Dr. Melissa Jasmine US PREG TVon 07-05-2022 US PREG TV EXAMINATION: US PREG TV HISTORY: Missed period COMPARISON: No relevant comparison available. FINDINGS: GESTATIONAL SAC: Present and normal appearing. YOLK SAC: Present and normal appearing. POLE: Present and normal appearing. CARDIAC: Present. UTERUS: Normal size and appearance. OVARIES: Right: Corpus lutein cyst. Left: Normal. CERVIX: 3.7 cm in length and closed. CUL-DE-SAC: Normal. OTHER: None. AGE BY LMP: 7 weeks 0 days TAMMY BY LMP: 02/21/2023 AGE BY US CRL: 6 weeks 4 days TAMMY BY US CRL: 02/24/2023 IMPRESSION: 1. Single live intrauterine . Electronically authenticated by: HECTOR RUSSELL Date: 2022-07-05 16:29 Normal [facility] QUANTIFERON TB GOLD PLUSon 0 04-07-2022 QuantiFERON Criteria Comment Normal [facility] Comment on above: Result Comment: Rm tiFERON-TB Gold Plus is a qualitative indirect test for M tuberculosis infection (including disease) and is intended for use in conjunction with risk assessment, radiography, and other medical and diagnostic evaluations. The QuantiFERON-TB Gold Plus result is determined by subtracting the Nil value from either TB antigen (Ag) value. The Mitogen tube serves as a control for the test. Performed By: #### Q NTTB #### [facility] [address] [place] [address] Dr. Melissa Jasmine QuantiFERON Incubation Incubation performed. Normal [facility] Comment on above: Performed By: #### Q NTTB #### [facility] [address] [place] [address] Dr. Melissa Jasmine QuantiFERON Mitogen Value >10.00 Normal [facility] Comment on above: Performed By: #### Q NTTB #### [facility] [address] [place] [address] Dr. Melissa Jasmine QuantiFERON Nil Value 0.04 IU/mL [facility] Comment on above: Performed By: #### Q NTTB #### [facility] [address] [place] [address] Dr. Melissa Jasmine QuantiFERON TB1 Ag Value 0.25 IU/mL [facility] Comment on above: Performed By: #### Q NTTB #### [facility] [address] [place] [address] Dr. Melissa Jasmine QuantiFERON TB2 Ag Value 0.16 IU/mL Normal [facility] Comment on above: Performed By: #### Q NTTB #### [facility] [address] [place] [address] Dr. Melissa Jasmine QuantiFERON-TB Gold Plus Negative Normal Negative [facility] Comment on above: Result Comment: No r esponse to M tuberculosis antigens detected. Infection with M tuberculosis is unlikely, but high risk individuals should be considered for additional testing (ATS/IDSA/CDC Clinical Practice Guidelines, 2017). The reference range is an Antigen minus Nil result of <0.35 IU/mL. Chemiluminescence immunoassay methodology Performed By: #### Q NTTB #### [facility] [address] [place] [address] Dr. Melissa Jasmine HEPATITIS B SURFACE ANTIBODY , QUANTon 04-06-2022 Hepatitis B Surf AB Quant 419.8 mIU/mL Normal Immunity>9.9 [facility] Comment on above: Result Comment: Stat us of Immunity Anti-HBs Level Inconsistent with Immunity 0.0 - 9.9 Consistent with Immunity >9.9 Performed By: #### H EPBSRF #### [facility] [address] [place] [address] Dr. Melissa Jasmine MMR IMMUNITYon 04-06-2022 Mumps Abs, IgG 271.0 AU/mL Normal Immune >10.9 [facility] Comment on above: Result Comment: Nega tive <9.0 Equivocal 9.0 - 10.9 Positive >10.9 A positive result generally indicates past exposure to Mumps virus or previous vaccination. Performed By: #### V JUDITH #### [facility] [address] [place] [address] Dr. Melissa Jasmine Rubella Antibodies, IgG 19.40 index Normal Immune >0.99 [facility] Comment on above: Result Comment: Non- immune <0.90 Equivocal 0.90 - 0.99 Immune >0.99 Performed By: #### V JUDITH #### [facility] [address] [place] [address] Dr. Melissa Jasmine Rubeola Ab, IgG 114.0 AU/mL Normal Immune >16.4 [facility] Comment on above: Result Comment: Nega tive <13.5 Equivocal 13.5 - 16.4 Positive >16.4 Presence of antibodies to Rubeola is presumptive evidence of immunity except when acute infection is suspected. Performed By: #### Avinash WONG #### [facility] [address] [place] [address] Dr. Melissa Jasmine VARICELLA IGG ABon 2 Varicella Zoster IgG 1030 index Normal Immune >165 [facility] Comment on above: Result Comment: Nega tive <135 Equivocal 135 - 165 Positive >165 A positive result generally indicates exposure to the pathogen or administration of specific immunoglobulins, but it is not indication of active infection or stage of disease. Performed By: #### Avinash WONG #### [facility] [address] [place] [address] Dr. Melissa Smith (Potassium)on 11-12-2021 Potassium [Moles/Vol] 4.1 mmol/L Normal 3.7-5.3 [facility] Comment on above: Performed By: #### K #### [facility] [address] [facility]. [place], [place] [id number] Glue Machine Operator: Zac Tyson DO Basic Metabolic Profon 10-31 (cont.) Normal [facility] Comment on above: Result Comment: Aver age GFR for 20-29 years old: 116 mL/min/1.73sq m Chronic Kidney Disease: <60 mL/min/1.73sq m Kidney failure: <15 mL/min/1.73sq m eGFR calculated using average adult body mass. Additional eGFR calculator available at: http://www.MDconnectME.[employer]/Incubator/multiple_crcl_2012.htm Performed By: #### B MP #### [facility] [address] [facility] [place], [place] [id number] Glue Machine Operator: Zac Tyson DO Anion gap [Moles/Vol] 9 mmol/L Normal 9-17 [facility] Comment on above: Performed By: #### B MP #### [facility] [address] [place] [address] Glue Machine Operator: Zac Tyson DO Calcium [Mass/Vol] 9.3 mg/dL Normal 8.6-10.4 [facility] Comment on above: Performed By: #### B MP #### [facility] [address] [place] [address] Glue Machine Operator: aZc Tyson DO Chloride [Moles/Vol] 101 mmol/L Normal 98-107 [facility] Comment on above: Performed By: #### B MP #### [facility] [place] [address] Glue Machine Operator: Zac Tyson DO CO2 [Moles/Vol] 27 mmol/L Normal 20-31 [facility] Comment on above: Performed By: #### B MP #### [facility] [place] [address] Glue Machine Operator: Zac Tyson DO Creatinine [Mass/Vol] 0.70 mg/dL Normal 0.50-0.90 [facility] Comment on above: Performed By: #### B MP #### [facility] [address] [place] [address] Glue Machine Operator: Zac Tyson DO GFR, Amer >60 Normal >60 [facility] Comment on above: Performed By: #### B MP #### [facility] [address] [place] [address] Glue Machine Operator: Zac Tyson DO GFR,non Amer >60 Normal >60 [facility] Comment on above: Performed By: #### B MP #### [facility] [address] [place] [address] Glue Machine Operator: Zac Tyson DO Glucose [Mass/Vol] 91 mg/dL Normal 70-99 [facility] Comment on above: Performed By: #### B MP #### [facility] [address] [place] [address] Glue Machine Operator: Zac Tyson DO Potassium [Moles/Vol] 3.7 mmol/L Normal 3.7-5.3 [facility] Comment on above: Performed By: #### B MP #### [facility] [place] [address] Glue Machine Operator: Zac Tyson DO Sodium [Moles/Vol] 137 mmol/L Normal 135-144 [facility] Comment on above: Performed By: #### B MP #### [facility] [place] [address] Glue Machine Operator: Zac Tyson DO Urea nitrogen [Mass/Vol] 7 mg/dL Normal 6-20 [facility] Comment on above: Performed By: #### B MP #### [facility] [place] [address] Glue Machine Operator: Zac Tyson DO CBC with Diffon 10-27-2021 Abs. Basophil 0.00 k/uL Normal 0.0-0.2 [facility] Comment on above: Performed By: #### H CG, ALCB, CDP, CP #### [facility] [place] [address] Glue Machine Operator: Zac Tyson DO Abs.Neutrophil (Seg) 4.70 k/uL Normal 1.3-9.1 [facility] Comment on above: Performed By: #### H CG, ALCB, CDP, CP #### [facility] [address] [place] [address] Glue Machine Operator: Zac Tyson DO Basophils/100 WBC (Bld) 1 % Normal 0-2 [facility] Comment on above: Performed By: #### H CG, ALCB, CDP, CP #### [facility] [address] [place] [address] Glue Machine Operator: Zac Tyson DO Eosinophils (Bld) [#/Vol] 0.00 10*3/uL Normal 0.0-0.4 [facility] Comment on above: Performed By: #### H CG, ALCB, CDP, CP #### [facility] [address] [place] [address] Glue Machine Operator: Zac Tyson DO Eosinophils/100 WBC (Bld) 0 % Normal 0-4 [facility] Comment on above: Performed By: #### H CG, ALCB, CDP, CP #### [facility] [address] [place] [address] Glue Machine Operator: Zac Tyson DO Erythrocyte distribution width (RBC) [Ratio] 12.9 % Normal 11.5-14.9 [facility] Comment on above: Performed By: #### H CG, ALCB, CDP, CP #### [facility] [address] [place] [address] Glue Machine Operator: Zac Tyson DO Hematocrit (Bld) [Volume fraction] 39.5 % Normal 36-46 [facility] Comment on above: Performed By: #### H CG, ALCB, CDP, CP #### [facility] [address] [place] [phone] Glue Machine Operator: Zac Tyson DO Hemoglobin (Bld) [Mass/Vol] 12.9 g/dL Normal 12.0-16.0 [facility] Comment on above: Performed By: #### H CG, ALCB, CDP, CP #### [facility] [address] [facility] [place] [address] Glue Machine Operator: Zac Tyson DO Lymphocytes (Bld) [#/Vol] 1.70 10*3/uL Normal 1.0-4.8 [facility] Comment on above: Performed By: #### H CG, ALCB, CDP, CP #### [facility] [address] [place] [address] Glue Machine Operator: Zac Tyson DO Lymphocytes/100 WBC (Bld) 24 % Normal 24-44 [facility] Comment on above: Performed By: #### H CG, ALCB, CDP, CP #### [facility] [address] [place] [address]. [place] [address] Glue Machine Operator: Zac Tyson DO MCH (RBC) [Entitic mass] 28.7 pg Normal 26-34 [facility] Comment on above: Performed By: #### Oxana DAWSON, ALCMikie, CDP, CP #### [facility] [address] [place] [address] Glue Machine Operator: Zac Tyson DO MCHC (RBC) [Mass/Vol] 32.7 g/dL Normal 31-37 [facility] Comment on above: Performed By: #### H CG, ALCB, CDP, CP #### [facility] [address] [place] [address] Glue Machine Operator: Zac Tyson DO MCV (RBC) [Entitic vol] 87.8 fL Normal 80-100 [facility] Comment on above: Performed By: #### H CG, ALCB, CDP, CP #### [facility] [address] [place] [address] Glue Machine Operator: Zac Tyson DO Monocytes (Bld) [#/Vol] 0.60 10*3/uL Normal 0.1-1.3 [facility] Comment on above: Performed By: #### H CG, ALCB, CDP, CP #### [facility] [address] [place] [address] Glue Machine Operator: Zac Tyson DO Monocytes/100 WBC (Bld) 9 % High 1-7 [facility] Comment on above: Performed By: #### H CG, ALCB, CDP, CP #### [facility] [address] [place] [address] Glue Machine Operator: Zac Tyson DO Neutrophil (Seg) 66 % Normal 36-66 [facility] Comment on above: Performed By: #### H CG, ALCB, CDP, CP #### [facility] [place] [address] Glue Machine Operator: Zac Tyson DO Platelet mean volume (Bld) [Entitic vol] 7.4 fL Normal 6.0-12.0 [facility] Comment on above: Performed By: #### H CG, ALCB, CDP, CP #### [facility] [place] [address] Glue Machine Operator: Zac Tyson DO Platelets (Bld) [#/Vol] 287 10*3/uL Normal 150-450 [facility] Comment on above: Performed By: #### H CG, ALCB, CDP, CP #### [facility] [place] [address] Glue Machine Operator: Zac Tyson DO RBC (Bld) [#/Vol] 4.50 10*6/uL Normal 4.0-5.2 [facility] Comment on above: Performed By: #### H CG, ALCB, CDP, CP #### [facility] [place] [address] Glue Machine Operator: Zac Tyson DO WBC (Bld) [#/Vol] 7.1 10*3/uL Normal 3.5-11.0 [facility] Comment on above: Performed By: #### H CG, ALCB, CDP, CP #### [facility] [address] [place] [address] Glue Machine Operator: Zac Tyson DO CT HEAD WO CONTRASTon 2021 CT HEAD WO CONTRAST EXAMINATION: CT OF THE HEAD WITHOUT CONTRAST 10/27/2021 7:15 pm TECHNIQUE: CT of the head was performed without the administration of intravenous contrast. Dose modulation, iterative reconstruction, and/or weight based adjustment of the mA/kV was utilized to reduce the radiation dose to as low as reasonably achievable. COMPARISON: None. HISTORY: ORDERING SYSTEM PROVIDED HISTORY: new onset psychosis TECHNOLOGIST PROVIDED HISTORY: new onset psychosis Decision Support Exception - unselect if not a suspected or confirmed emergency medical condition->Emergency Medical Condition (MA) Is the patient ?->No Reason for Exam: new onset psychosis, ams FINDINGS: BRAIN/VENTRICLES: There is no acute intracranial hemorrhage, mass effect or midline shift. No abnormal extra-axial fluid collection. The whitney-white differentiation is maintained without evidence of an acute infarct. There is no evidence of hydrocephalus. ORBITS: The visualized portion of the orbits demonstrate no acute abnormality. SINUSES: The visualized paranasal sinuses and mastoid air cells demonstrate no acute abnormality. SOFT TISSUES/SKULL: No acute abnormality of the visualized skull or soft tissues. IMPRESSION: No acute intracranial abnormality. RECOMMENDATIONS: Unavailable Interpreted by: Dru Canseco MD Signed by: Dru Canseco MD 10/27/21 Final result Normal [facility] Comp Metabolic Profon 2021 (cont.) Normal [facility] Comment on above: Result Comment: Aver age GFR for 20-29 years old: 116 mL/min/1.73sq m Chronic Kidney Disease: <60 mL/min/1.73sq m Kidney failure: <15 mL/min/1.73sq m eGFR calculated using average adult body mass. Additional eGFR calculator available at: http://www.MDconnectME.[employer]/Incubator/multiple_crcl_2012.htm Performed By: #### H CG, ALCB, CDP, CP #### [facility] [address] [place] [address] Glue Machine Operator: Zac Tyson DO Albumin [Mass/Vol] 4.4 g/dL Normal 3.5-5.2 [facility] Comment on above: Performed By: #### H CG, ALCB, CDP, CP #### [facility] [address] [facility] [place] [address] Glue Machine Operator: Zac Tyson DO Alkaline Phos 36 U/L Normal 35-104 [facility] Comment on above: Performed By: #### H CG, ALCB, CDP, CP #### [facility] [facility] [place] [address] Glue Machine Operator: Zac Tyson DO ALT [Catalytic activity/Vol] 16 U/L Normal 5-33 [facility] Comment on above: Performed By: #### H CG, ALCB, CDP, CP #### [facility] [facility] [place] [address] Glue Machine Operator: Zac Tyson DO Anion gap [Moles/Vol] 11 mmol/L Normal 9-17 [facility] Comment on above: Performed By: #### H CG, ALCB, CDP, CP #### [facility] [address] [facility] [place] [address] Glue Machine Operator: Zac Tyson DO AST [Catalytic activity/Vol] 24 U/L Normal <32 [facility] Comment on above: Performed By: #### H CG, ALCB, CDP, CP #### [facility] [facility] [place] [address] Glue Machine Operator: Zac Tyson DO Bilirubin [Mass/Vol] 0.33 mg/dL Normal 0.3-1.2 [facility] Comment on above: Performed By: #### H CG, ALCB, CDP, CP #### [facility] [address] [place] [address] Glue Machine Operator: Zac Tyson DO Calcium [Mass/Vol] 9.8 mg/dL Normal 8.6-10.4 [facility] Comment on above: Performed By: #### H CG, ALCB, CDP, CP #### [facility] [address] [place] [address] Glue Machine Operator: Zac Tyson DO Chloride [Moles/Vol] 105 mmol/L Normal 98-107 [facility] Comment on above: Performed By: #### H CG, ALCB, CDP, CP #### [facility] [address] [place] [address] Glue Machine Operator: Zac Tyson DO CO2 [Moles/Vol] 25 mmol/L Normal 20-31 [facility] Comment on above: Performed By: #### H CG, ALCB, CDP, CP #### [facility] [address] [place] [address] Glue Machine Operator: Zac Tyson DO Creatinine [Mass/Vol] 0.70 mg/dL Normal 0.50-0.90 [facility] Comment on above: Performed By: #### H CG, ALCB, CDP, CP #### [facility] [address] [place] [address] Glue Machine Operator: Zac Tyson DO GFR, Amer >60 Normal >60 [facility] Comment on above: Performed By: #### H CG, ALCB, CDP, CP #### [facility] [address] [place] [address] Glue Machine Operator: Zac Tyson DO GFR,non Amer >60 Normal >60 [facility] Comment on above: Performed By: #### H CG, ALCB, CDP, CP #### [facility] [address] [place] [address] Glue Machine Operator: Zac Tyson DO Glucose [Mass/Vol] 97 mg/dL Normal 70-99 [facility] Comment on above: Performed By: #### H CG, ALCB, CDP, CP #### [facility] [address] [place] [address] Glue Machine Operator: Zac Tyson DO Potassium [Moles/Vol] 3.3 mmol/L Low 3.7-5.3 [facility] Comment on above: Performed By: #### H CG, ALCB, CDP, CP #### [facility] [place] [address] Glue Machine Operator: Zac Tyson DO Protein [Mass/Vol] 7.0 g/dL Normal 6.4-8.3 [facility] Comment on above: Performed By: #### H EUNICE, ESCOBAR, CDP, CP #### [facility] [facility] [place] [address] Glue Machine Operator: Zac Tyson DO Sodium [Moles/Vol] 141 mmol/L Normal 135-144 [facility] Comment on above: Performed By: #### H CG, ALCB, CDP, CP #### [facility] [place] [address] Glue Machine Operator: Zac Tyson DO Urea nitrogen [Mass/Vol] 5 mg/dL Low 6-20 [facility] Comment on above: Performed By: #### H CG, ALCB, CDP, CP #### [facility] [place] [address] Glue Machine Operator: Zac Tyson DO Drug Scr, Abuse, Uron 2021 Amphetamine(s),Ur Negative Normal NEG [facility] Comment on above: Result Comment: (Positive cutoff 1000 ng/mL) Performed By: #### D AU #### [facility] [address] [place] [address] Glue Machine Operator: Zac Tyson DO Barbiturate(s),Ur Negative Normal NEG [facility] Comment on above: Result Comment: (Positive cutoff 200 ng/mL) Performed By: #### D AU #### [facility] [address] [place] [address] Glue Machine Operator: Zac Tyson DO Benzodiazepine(s) Negative Normal NEG [facility] Comment on above: Result Comment: (Positive cutoff 200 ng/mL) Performed By: #### D AU #### [facility] [address] [place] [address] [id number] Glue Machine Operator: Zac Tyson DO Cannabinoid(s),Ur Negative Normal NEG [facility] Comment on above: Result Comment: (Positive cutoff 50 ng/mL) Performed By: #### D AU #### [facility] [address] [place] [id number] Glue Machine Operator: Zac Tyson DO Cocaine Metabolite Negative Normal [facility] Comment on above: Result Comment: (Positive cutoff 300 ng/mL) Performed By: #### D AU #### [facility] [address] [place] [id number] Glue Machine Operator: Zac Tyson DO Interpretive Info Assay provides medical screening only. The absence of expected drug(s) and/or Normal [facility] Comment on above: Result Comment: meta bolite(s) may indicate diluted or adulterated urine, limitations of testing or timing of collection. Testing for legal purposes should be confirmed by another method. To request confirmation of test result, please call the lab within 7 days of sample submission. Performed By: #### D AU #### [facility] [address] [place] [id number] Glue Machine Operator: Zac Tyson DO Methadone Ql (U) Negative Normal NEG [facility] Comment on above: Result Comment: (Positive cutoff 300 ng/mL) Performed By: #### D AU #### [facility] [address] [place] [id number] Glue Machine Operator: Zac Tyson DO Opiate(s), Ur Negative Normal NEG [facility] Comment on above: Result Comment: (Positive cutoff 300 ng/mL) Performed By: #### D AU #### [facility] [address] [place] [id number] Glue Machine Operator: Zac Tyson DO Oxycodone, Urine Negative Normal NEG [facility] Comment on above: Result Comment: (Positive cutoff 100 ng/mL) Performed By: #### D AU #### [facility] [address] [place] [id number] Glue Machine Operator: Zac Tyson DO Phencyclidine, Ur Negative Normal NEG [facility] Comment on above: Result Comment: (Positive cutoff 25 ng/mL) Performed By: #### D AU #### [facility] [address] [place] [id number] Glue Machine Operator: Zac Tyson DO Ethanol Alcoholon 10-27-2021 Ethanol [Mass/Vol] mg/dL Normal <10 [facility] Comment on above: Performed By: #### H CG, ALCB, CDP, CP #### [facility] [address] [place] [phone] Glue Machine Operator: Zac Tyson DO Ethanol percent <0.010 Normal [facility] Comment on above: Performed By: #### H CG, ALCB, CDP, CP #### [facility] [address] [place] [address] [place] [address] Glue Machine Operator: Zac Tyson DO HCG Screen, Bloodon 10-28-19 HCG Screen, Blood Negative Normal NEG [facility] Comment on above: Result Comment: Spec imens with hCG levels near the threshold of the test (25 mIU/mL) may give a negative or indeterminate result. In such cases, another test should be performed with a new specimen in 48-72 hours. If early is suspected clinically in this setting, correlation with quantitative serum b-hCG level is suggested. Performed By: #### H CG, ALCB, CDP, CP #### [facility] [facility] [place] [address] Glue Machine Operator: Zac Tyson DO [id number] 10-27-2021 SARS-CoV-2 (COVID-19) RNA EMMANUEL+probe Ql (Unsp spec) Not detected Normal NOTDET [facility] Comment on above: Result Comment: Rapid NAAT: The specimen is NEGATIVE for SARS-CoV-2, the novel coronavirus associated with COVID-19. The ID NOW COVID-19 assay is designed to detect the virus that causes COVID-19 in patients with signs and symptoms of infection who are suspected of COVID-19. An individual without symptoms of COVID-19 and who is not shedding SARS-CoV-2 virus would expect to have a negative (not detected) result in this assay. Negative results should be treated as presumptive and, if inconsistent with clinical signs and symptoms or necessary for patient management, should be tested with an alternative molecular assay. Negative results do not preclude SARS-CoV-2 infection and should not be used as the sole basis for patient management decisions. Fact sheet for Healthcare Providers: https://www.fda.gov/media/027894/download Fact sheet for Patients: https://www.fda.gov/media/799584/download Methodology: Isothermal Nucleic Acid Amplification Performed By: #### C OVRB #### [facility] [address] [facility] [place] [address] Glue Machine Operator: Zac Tyson DO Rubella Ab, IgGon 02-28-2021 Rubella Ab, IgG >500.0 Normal [facility] Comment on above: Result Comment: REFERENCE RANGE: <5.0 NON-REACTIVE (non-immune) 5.0 TO 9.9 EQUIVOCAL >=10.0 REACTIVE (immune) Performed By: #### R UBI #### [facility] [address] [place] [address] Glue Machine Operator: Stepan Pearson MD CHLAMYDIA/GC PCRon 7 Chlamydia Trachomatis Not Detected Normal Not Detected [facility] Comment on above: Performed By: #### 3 0113 ####[facility] Neisseria Gonorrhoeae Not Detected Normal Not Detected [facility] Comment on above: Performed By: #### 3 0113 ####[facility] Vital Signs Date Time Vital Sign Value Performing Clinician Facility 02-12-2025 09:34-0400 Body height 152.4 cm [facility] 02-12-2025 09:34-0400 Body mass index (BMI) [Ratio] 25 kg/m2 [facility] 02-12-2025 09:34-0400 Body temperature 98.3 [degF] [facility] 02-12-2025 09:34-0400 Body weight 58.05 kg [facility] 02-12-2025 09:34-0400 Diastolic blood pressure 66 mm[Hg] [facility] 02-12-2025 09:34-0400 Heart rate 84 /min [facility] 02-12-2025 09:34-0400 SaO2% (BldA) [Mass fraction] 98 % [facility] 02-12-2025 09:34-0400 Systolic blood pressure 112 mm[Hg] [facility] 08-05-2024 15:32-0500 Body height 162.56 cm [facility] 08-05-2024 15:32-0500 Body mass index (BMI) [Ratio] 23.6 kg/m2 [facility] 08-05-2024 15:32-0500 Body temperature 98.4 [degF] [facility] 08-05-2024 15:32-0500 Body weight 62.36 kg [facility] 08-05-2024 15:32-0500 Diastolic blood pressure 67 mm[Hg] [facility] 08-05-2024 15:32-0500 Heart rate 78 /min [facility] 08-05-2024 15:32-0500 Respiratory rate 18 /min [facility] 08-05-2024 15:32-0500 Systolic blood pressure 103 mm[Hg] [facility] 09-13-2022 03:06-0500 Body weight 66.2256 kg GENE MOREL . [facility] Comment on above: Performed By: #### AFPMAT #### [facility] [address] [place] [address] Dr. Melissa Jasmine Encounters Encounter Date Encounter Type Care Provider Facility Start: 02-12-2025 End: 02-12-2025 ambulatory NON STAFF [facility] Work Phone: Start: 02-12-2025 End: 02-12-2025 Patient encounter procedure Linda Hong APRN [facility] Work Phone: Start: 02-12-2025 End: 02-12-2025 Patient encounter status Linda Hong APRN [facility] Start: 08-05-2024 End: 08-05-2024 ambulatory [facility] Work Phone: Start: 08-05-2024 End: 08-05-2024 Patient encounter procedure [facility] Claude Work Phone: Start: 06-11-2023 ambulatory Shaggy Eubanks acility:[facility] Start: 11-08-2022 End: 11-09-[address] ISRAEL MOREL . Facility: Start: 11-01-2022 End: 04-21-[address] ISRAEL MOREL . Facility:[facility] Start: 10-04-2022 End: 10-05-[address] ISRAEL MOREL . Facility:[facility] Start: 10-01-2022 End: 10-01-[address] ISRAEL MOREL . Facility:[facility] Start: 09-11-2022 End: 09-12-2022 ambulatory GENE MARIA TERESA . Facility:[facility] Start: 08-10-2022 End: 08-11-[address] ISRAEL MOREL . Facility:[facility] Start: 07-05-2022 End: 07-06-[address] ISRAEL MOREL . Facility:[facility] Start: 04-05-2022 End: 04-06-2022 ambulatory TREVOR CABELLO Facility:[facility] Start: 10-27-2021 End: 2021 Evaluation and management of inpatient [facility] Start: 02-27-2021 End: 02-28-2021 ambulatory [facility] Start: 04-19-2017 End: 04-20-2017 Ambulatory GINGER ARMIJO Facility:[facility] Plan of Treatment Date Care Activity Detail Author Comprehensive metabo lic 2000 panel - Serum or Plasma [facility] enter [facility] Payers Date Payer Category Payer Unknown [id number] 2021 Unknown [id number] 2019 Unknown [id number] 1996 Unknown [id number] 2.16.8 [id number] 1996 Unknown [id number] 2.16.84 [id number] 1996 Unknown [id number] 2.16.84 [id number] 1996 Unknown [id number] 2.16.84 [id number] 1996 Unknown [id number] 2.16.84 [id number] 1996 Unknown [id number] 2.16.84 [id number] 1996 Unknown [id number] 2.16.84 [id number] 1996 Unknown [id number] 2.16.84 [id number] 1959 Self-pay Unknown [id number] Unknown [id number] 2.16.84 [id number] Unknown [id number] 2.16.84 [id number] Social History Date Type Detail Facility Tobacco smoking status NHIS Unknown if ever smoked [facility] Work Phone: Start: 08-05-2024 Sex Female (finding) [facility] Start: 1995 Sex Assigned At Female [facility] Start: 02-12-2025 Tobacco smoking status NHIS Never smoked tobacco (finding) [facility] Gender Identity Cisgender/Not transgender (finding) [facility] NEGATED: Highlighted row N [facility] Evaluation note Note Date & Type Note Facility Evaluation note Diagnosis Onset Date Resolution Right conjunctivitis acute Zac michele 2024 3:25pm [facility] Work Phone: Evaluation note Note Date & Type Note Facility Evaluation note Diagnosis Onset Date Resolution Wellness examination acute Augu st 2024 9:26am [facility] Work Phone: Reason for referral (narrative) Note Date & Type Note Facility Reason for referral (narrative) No reason for referral information available [facility] Work Phone: Summary Purpose Family History Relationship Condition Age at Onset Recorded Date/T geovanna father Hypertension Unknown Disorder of thyroid Unknown Heart disease Unknown Advance Directives Advance Directive Response Recorded Date/ Time Advance Directives No August 05, 2024 3:22pm Advance Directive Response Recorded Date/ Time Advance Directives No August 05, 2024 4:22pm Chief Complaint and Reason for Visit Chief Complaint Admit Date red, itchy right eye-possible pink eye J anuary 2024 3:25pm Reason for Visit Admit Date Right conjunctivitis August 05, 2024 3:25pm Chief Complaint Admit Date Est Care February 12, 2025 9:2 6am Reason for Visit Admit Date Wellness examination February 12, 2025 9: 26am Additional Source Comments INFORMATION SOURCE (unrecogn ized section and content) DATE CREATED AUTHOR 01/07/2018 [facility] DATE CREATED AUTHOR AUTHOR'S ORGANIZ ATION 02/28/2021 [facility] DATE CREATED AUTHOR AUTHOR'S ORGANIZ ATION 11/14/2021 [facility] DATE CREATED AUTHOR AUTHOR'S ORGANIZ ATION 11/11/2022 [facility] DATE CREATED AUTHOR AUTHOR'S ORGANIZ ATION 08/15/2023 [facility] Care Teams (unrecognized sec tion and content) Team Status: Active Member Role Status Dates NON STAFF Primary Care Provider Active Team Status: Inactive Member Role Status Dates NON STAFF Primary Care Provider Active Start: August 05, 2024 End: August 05, 2024 Magalie Remy APRN Attending Provider Active S tart: August 05, 2024 End: August 05, 2024 Team Status: Inactive Member Role Status Dates NON STAFF Primary Care Provider Active Start: February 12, 2025 End: February 12, 2025 Linda Hong APRN DATA PROCESSING SPECIALIST-C Attending Provider Act jarrod Start: February 12, 2025 End: February 12, 2025 Goals (unrecognized section and content) Goals may be documented in a n alternate sectionGoals may be documented in an alternate section FOR RECORDS PERTAINING TO PATIENTS WHO ARE OR HAVE BEEN ENROLLED IN A CHEMICAL DEPENDENCY/SUBSTANCEABUSE PROGRAM, SOME INFORMATION MAY BE OMITTED. This clinical summary was aggregated from multiple sources. Caution should be exercised in using it in the provision of clinical care. This summary normalizes information from multiple sources, and as a consequence, information in this document may materially change the coding, format and clinical context of patient data. In addition, data may be omitted in some cases. CLINICAL DECISIONS SHOULD BE BASED ON THE PRIMARY CLINICAL RECORDS. [facility] [employer] [facility]. provides no warranty or guarantee of the accuracy or completeness of information in this document.
[2025-02-24 07:44] LABS: Hematocrit 41.1 % (36.0-48.0); Hemoglobin 13.4 g/dL (12.0-16.0); Immature Granulocytes Abs Auto 0.01 10^3/uL (0.00-0.03); Immature Granulocytes Pct Auto 0.3 % (0.0-0.5); Lymphocytes Absolute Auto 1.2 10^3/uL (1.2-3.8); Mean Corpuscular HGB Conc 32.6 g/dL (29.9-35.2); Mean Corpuscular Hemoglobin 29.0 pg (26.7-34.0); Mean Corpuscular Volume 89.0 fL (81.0-99.0); Platelet Count 205 10^3/uL (150-450); Red Blood Count 4.62 10^6/uL (4.20-5.40); White Blood Count 3.2 10^3/uL (4.0-11.0)
[2025-02-24 08:31] LABS: Alanine Aminotransferase 18 U/L (14-59); Albumin Globulin Ratio 1.2; Albumin Level 4.2 g/dL (3.4-5.0); Alkaline Phosphatase 38 U/L (46-116); Anion Gap 12.9; Aspartate Amino Transferase 14 U/L (15-37); Blood Urea Nitrogen 11.0 mg/dL (7.0-18.0); Calcium 8.8 mg/dL (8.5-10.1); Carbon Dioxide 27.9 mmol/L (21.0-32.0); Chloride 105 mmol/L (98-107); Cholesterol 158 mg/dL (<=200); Estimated GFR (African America >60 (>=60 mL/min/1.73m^2); Estimated GFR (Non-African Ame >60 (>=60 mL/min/1.73m^2); Globulin 3.6 g/dL; Glucose 92 mg/dL (74-106); HDL Cholesterol 61 mg/dL (40-60); Potassium 3.8 mmol/L (3.5-5.1); Sodium 142 mmol/L (136-145); Total Protein 7.8 g/dL (6.4-8.2); Triglycerides 24 mg/dL (<=150); VLDL CHOLESTEROL 4.8 mg/dL
== END 2025-02-24 07:27 | disposition home or self-care (01) ==
LOC: LAB 07:27
PROVIDERS: PCP Nurse Practitioner Family; Visit Provider Nurse Practitioner Family
DX: Z00.00 Encounter for general adult medical examination without abnormal findings (principal)
CPT/HCPCS: 36415; 80053; 80061; 85025